=== PATIENT | female | born 1945 | race Caucasian/White ===

== ENCOUNTER 2018-06-08 09:02 | Emergency (ER) | payer OTHER ==
[2018-06-08] MEDS ORDERED: ONDANSETRON 4 MG/2 ML VIAL ONE (10:17)
[2018-06-08] MEDS ORDERED: NA CHLORIDE 0.9% 1,000 ML ONE (10:17)
[2018-06-08] MEDS ORDERED: FAMOTIDINE 20 MG/2 ML VIAL IV ONE (10:17)
[2018-06-08 10:41] LABS: Absolute Lymphocytes (CBC) 0.2 K/uL (0.7-4.9); Absolute Monocytes 0.2 K/uL (0.1-1.3); Absolute Neutrophil 8.2 K/uL (1.8-8.0); Basophils % 0.1 % (0-1.3); Eosinophils % 0.2 % (0-4.4); Hematocrit 40.2 % (36.0-45.0); Lymphocytes % 2.8 % (15.3-44.8); MCH 31.8 pg (27.0-35.0); MCV 94.3 fL (80-100); MPV 9.2 fL (7.6-11.3); Monocytes % 2.2 % (3.3-12.3); RBC Red Blood Cell Count 4.27 M/uL (3.86-4.86)
[2018-06-08 10:51] LABS: Albumin 3.9 g/dL (3.4-5.0); Bilirubin Direct 0.1 mg/dL (0-0.2); Bilirubin Total 0.6 mg/dL (0.2-1.0); Potassium 3.7 mmol/L (3.5-5.1); Protein, Total 7.4 g/dL (6.4-8.2)
[2018-06-08 11:08] LABS: Blood Morphology Comment NOT SEEN (NOT SEEN); Platelet Estimate ADEQ; Urine White Blood Cell Casts OK
[2018-06-08 11:35] LABS: Urine Bacteria <20 /HPF (<20); Urine Culture Reflex Order NOT NEEDED; Urine Mucus 1+ /HPF (NONE SEEN); Urine RBC NONE SEEN /HPF (NONE SEEN)
[2018-06-08 11:51] LABS: Urine Blood NEGATIVE (NEG); Urine Glucose NEGATIVE (NEG); Urine Protein NEGATIVE (NEG); Urine Specific Gravity 1.025 (1.005-1.030); Urine pH 5.5 (5.0-7.0)
--- NOTE | 2018-06-08 12:47 | ER ---
Nurse's Notes [facility] Name: Kassandra Russell Age: 72 yrs Sex: Female : 1945 Arrival Date: 06/08/2018 Time: 09:05 Bed 19 Private MD: Floyd Payne Diagnosis: Generalized abdominal pain;Vomiting;Diarrhea, unspecified Presentation: 06/08 09:26 Presenting complaint: Patient states: N/V/D and RUQ pain radiating to back. Pt states aa5 "I was going to see Dr. Estrada for a gallbladder check up on Sunday but I was just so sick I couldn't make it". Pt states "I am also having black coffee ground stool that started last night". Transition of care: patient was not received from another setting of care. Onset of symptoms was May 2018. Risk Assessment: Do you want to hurt yourself or someone else? Patient reports no desire to harm self or others. Initial Sepsis Screen: Does the patient meet any 2 criteria? No. Patient's initial sepsis screen is negative. Does the patient have a suspected source of infection? No. Patient's initial sepsis screen is negative. Care prior to arrival: None. 09:26 Method Of Arrival: Wheelchair aa5 09:26 Acuity: KRISTIE 3 aa5 Triage Assessment: 09:41 General: Appears in no apparent distress. uncomfortable, obese, Behavior is bp cooperative, appropriate for age, anxious. Pain: Complains of pain in abdomen. GI: Reports diarrhea, nausea, vomiting. Historical: - Allergies: 09:29 aspirin; aa5 09:29 Tape; aa5 09:29 tramadol; aa5 09:30 Tizanidine; aa5 - Home Meds: 09:30 None [Active]; aa5 - PMHx: 09:30 None; aa5 - PSHx: 09:30 Toe sx; Hysterectomy; Throat- Nodules removed; aa5 - Immunization history:: Pneumococcal vaccine is not up to date, Flu vaccine is not up to date. - Social history:: Smoking status: Patient/guardian denies using tobacco. - Ebola Screening: : No symptoms or risks identified at this time. Screenin:44 Abuse screen: Denies threats or abuse. Denies injuries from another. Nutritional bp screening: No deficits noted. Tuberculosis screening: No symptoms or risk factors identified. Fall Risk None identified. Assessment: 09:15 General: Appears in no apparent distress. uncomfortable, obese, Behavior is bp cooperative, appropriate for age, anxious. Pain: Complains of pain in abdomen. Neuro: Level of Consciousness is awake, alert, obeys commands, Oriented to person, place, time, situation, Appropriate for age. Cardiovascular: No deficits noted. Respiratory: Airway is patent Respiratory effort is even, unlabored, Respiratory pattern is regular, symmetrical. GI: Abdomen is obese, Reports diarrhea, nausea, vomiting. : No signs and/or symptoms were reported regarding the genitourinary system. EENT: No deficits noted. Derm: No deficits noted. Musculoskeletal: Circulation, motion, and sensation intact. Range of motion: intact in all extremities. 10:52 Reassessment: PT RESTING QUIETLY, ACUTE S/S RESOLVED AT THIS TIME. bp 13:02 Reassessment: PT D/C HOME VIA W/C WITH FAMILY, DX WITH NONSPECIFIC ABD PAIN. bp Vital Signs: 09:31 BP 133 / 70; Pulse 106; Resp 18 S; Temp 98.7(O); Pulse Ox 97% on R/A; Weight 66.68 kg aa5 (R); Height 5 ft. 2 in. (157.48 cm) (R); Pain 7/10; 10:51 BP 141 / 71; Pulse 94; Resp 16; Pulse Ox 96% ; bp 13:03 BP 142 / 69; Pulse 92; Resp 16; Pulse Ox 96% ; bp 09:31 Body Mass Index 26.89 (66.68 kg, 157.48 cm) aa5 ED Course: 09:05 Patient arrived in ED. rg4 09:06 Floyd Payne MD is Private Physician. rg4 09:27 Triage completed. aa5 09:27 Arm band placed on. aa5 09:40 Moises Lauren MD is Attending Physician. gs 09:41 Eagle Nunes, DEMIAN is Primary Nurse. bp 09:44 Patient has correct armband on for positive identification. Bed in low position. Call bp light in reach. Side rails up X2. Adult w/ patient. 10:20 Inserted saline lock: 20 gauge in right antecubital area, using aseptic technique. bp Blood collected. 13:02 No provider procedures requiring assistance completed. IV discontinued, intact, bp bleeding controlled, No redness/swelling at site. Pressure dressing applied. Administered Medications: 10:20 Drug: NS 0.9% 1000 ml Route: IV; Rate: 1 bolus; Site: right antecubital; bp 13:05 Follow up: IV Status: Completed infusion; IV Intake: 1000ml bp 10:20 Drug: Zofran 4 mg Route: IVP; Site: right antecubital; bp 13:05 Follow up: Response: No adverse reaction bp 10:20 Drug: Pepcid 20 mg Route: IVP; Site: right antecubital; bp 13:04 Follow up: Response: No adverse reaction bp Intake: 13:05 IV: 1000ml; Total: 1000ml. bp Outcome: 12:46 Discharge ordered by MD. 13:04 Discharged to home via wheelchair, with family. bp 13:04 Condition: stable 13:04 Discharge instructions given to patient, Instructed on discharge instructions, follow up and referral plans. medication usage, Demonstrated understanding of instructions, follow-up care, medications, Prescriptions given X 1. 13:05 Patient left the ED. bp Signatures: Maria Isabel Neal RN RN aa5 Jessica Capps rg4 Moises Lauren MD MD gs Peltier, Brian, RN RN bp Corrections: (The following items were deleted from the chart) 09:28 09:26 Presenting complaint: Patient states: N/V/D and RUQ pain radiating to back. Pt aa5 states "I was going to see Dr. Estrada for a gallbladder check up on Sunday but I was just so sick I couldn't make it" aa5
--- NOTE | 2018-06-08 12:47 | EDPHYS ---
Physician Documentation [facility] Name: Kassandra Russell Age: 72 yrs Sex: Female : 1945 Arrival Date: 06/08/2018 Time: 09:05 Bed 19 Private MD: Floyd Payne ED Physician Moises Lauren HPI: 06/08 12:42 This 72 yrs old Female presents to ER via Wheelchair with complaints of gs Vomiting/Diarrhea. 12:42 The patient presents to the emergency department with vomiting, diarrhea. Onset: The gs symptoms/episode began/occurred 2 day(s) ago. Possible causes: flare up of bowel problem, chronic abdominal pain for several years. The symptoms are aggravated by nothing. The symptoms are alleviated by nothing. Associated signs and symptoms: Pertinent negatives: fever. Severity of symptoms: At their worst the symptoms were moderate in the emergency department the symptoms have improved mildly. The patient has experienced similar episodes in the past, multiple times. The patient has been recently seen by a physician: dr armendariz scheduled for sunday. Historical: - Allergies: 09:29 aspirin; aa5 09:29 Tape; aa5 09:29 tramadol; aa5 09:30 Tizanidine; aa5 - Home Meds: 09:30 None [Active]; aa5 - PMHx: 09:30 None; aa5 - PSHx: 09:30 Toe sx; Hysterectomy; Throat- Nodules removed; aa5 - Immunization history:: Pneumococcal vaccine is not up to date, Flu vaccine is not up to date. - Social history:: Smoking status: Patient/guardian denies using tobacco. - Ebola Screening: : No symptoms or risks identified at this time. ROS: 12:42 All other systems are negative. gs Exam: 12:42 Head/Face: Normocephalic, atraumatic. Eyes: Pupils equal round and reactive to light, gs extra-ocular motions intact. Lids and lashes normal. Conjunctiva and sclera are non-icteric and not injected. Cornea within normal limits. Periorbital areas with no swelling, redness, or edema. ENT: Nares patent. No nasal discharge, no septal abnormalities noted. Tympanic membranes are normal and external auditory canals are clear. Oropharynx with no redness, swelling, or masses, exudates, or evidence of obstruction, uvula midline. Mucous membranes moist. Neck: Trachea midline, no thyromegaly or masses palpated, and no cervical lymphadenopathy. Supple, full range of motion without nuchal rigidity, or vertebral point tenderness. No Meningismus. Chest/axilla: Normal chest wall appearance and motion. Nontender with no deformity. No lesions are appreciated. Cardiovascular: Regular rate and rhythm with a normal S1 and S2. No gallops, murmurs, or rubs. Normal PMI, no JVD. No pulse deficits. Respiratory: Lungs have equal breath sounds bilaterally, clear to auscultation and percussion. No rales, rhonchi or wheezes noted. No increased work of breathing, no retractions or nasal flaring. Back: No spinal tenderness. No costovertebral tenderness. Full range of motion. Skin: Warm, dry with normal turgor. Normal color with no rashes, no lesions, and no evidence of cellulitis. MS/ Extremity: Pulses equal, no cyanosis. Neurovascular intact. Full, normal range of motion. Neuro: Awake and alert, GCS 15, oriented to person, place, time, and situation. Cranial nerves II-XII grossly intact. Motor strength 5/5 in all extremities. Sensory grossly intact. Cerebellar exam normal. Normal gait. 12:42 Constitutional: The patient appears alert, awake. 12:42 Abdomen/GI: Inspection: distension, that is mild, Palpation: mild abdominal tenderness, in all quadrants, rebound tenderness, is not appreciated. Vital Signs: 09:31 BP 133 / 70; Pulse 106; Resp 18 S; Temp 98.7(O); Pulse Ox 97% on R/A; Weight 66.68 kg aa5 (R); Height 5 ft. 2 in. (157.48 cm) (R); Pain 7/10; 10:51 BP 141 / 71; Pulse 94; Resp 16; Pulse Ox 96% ; bp 13:03 BP 142 / 69; Pulse 92; Resp 16; Pulse Ox 96% ; bp 09:31 Body Mass Index 26.89 (66.68 kg, 157.48 cm) aa5 MDM: 09:52 Patient medically screened. gs 12:42 Differential diagnosis: Nonspecific abd pain, pancreatitis, viral gastroenteritis, gs gastroenteritis. Data reviewed: vital signs, nurses notes. Counseling: I had a detailed discussion with the patient and/or guardian regarding: the historical points, exam findings, and any diagnostic results supporting the discharge/admit diagnosis, lab results, the need for outpatient follow up. Response to treatment: the patient's symptoms have markedly improved after treatment, the patient's symptoms have resolved after treatment, the patient's pain is gone. 06/08 09:57 Order name: Basic Metabolic Panel; Complete Time: 12:37 gs 06/08 09:57 Order name: CBC with Diff; Complete Time: 12:37 gs 06/08 09:57 Order name: Hepatic Function; Complete Time: 12:37 gs 06/08 09:57 Order name: Lipase; Complete Time: 12:37 gs 06/08 09:57 Order name: Urine Microscopic Only; Complete Time: 12:37 gs 06/08 10:51 Order name: CBC Smear Scan; Complete Time: 12:37 EDMS 06/08 09:57 Order name: IV Saline Lock; Complete Time: 10:26 gs 06/08 09:57 Order name: Labs collected and sent; Complete Time: 10:27 gs 06/08 09:57 Order name: Urine Dipstick-Ancillary (obtain specimen); Complete Time: : gs 06/08 10:52 Order name: Urine Dipstick--Ancillary (enter results); Complete Time: 12:37 eb Administered Medications: 10:20 Drug: NS 0.9% 1000 ml Route: IV; Rate: 1 bolus; Site: right antecubital; bp 13:05 Follow up: IV Status: Completed infusion; IV Intake: 1000ml bp 10:20 Drug: Zofran 4 mg Route: IVP; Site: right antecubital; bp 13:05 Follow up: Response: No adverse reaction bp 10:20 Drug: Pepcid 20 mg Route: IVP; Site: right antecubital; bp 13:04 Follow up: Response: No adverse reaction bp Disposition: 06/08/18 12:46 Discharged to Home. Impression: Generalized abdominal pain, Vomiting, Diarrhea, unspecified. - Condition is Stable. - Discharge Instructions: Diarrhea, Adult, Nausea and Vomiting, Adult. - Prescriptions for Zofran 4 mg Oral Tablet - take 1 tablet by ORAL route every 12 hours As needed; 10 tablet. - Medication Reconciliation Form, Thank You Letter, Antibiotic Education, Prescription Opioid Use form. - Follow up: Private Physician; When: 1 - 2 days; Reason: Re-evaluation by your physician. Signatures: Dispatcher [employer] Maria Isabel Salcedo RN RN aa5 Moises Lauren MD MD gs Eagle Nunes RN RN bp Corrections: (The following items were deleted from the chart) 13:05 12:46 06/08/2018 12:46 Discharged to Home. Impression: Generalized abdominal pain; bp Vomiting; Diarrhea, unspecified. Condition is Stable. Forms are Medication Reconciliation Form, Thank You Letter, Antibiotic Education, Prescription Opioid Use. Follow up: Private Physician; When: 1 - 2 days; Reason: Re-evaluation by your physician. gs
== END 2018-06-08 13:05 | disposition home or self-care (01) ==
LOC: ER 09:02
DX: R19.7 Diarrhea, unspecified (principal); R10.84 Generalized abdominal pain; Z88.5 Allergy status to narcotic agent; Z88.6 Allergy status to analgesic agent; Z88.8 Allergy status to other drugs, medicaments and biological substances; Z91.048 Other nonmedicinal substance allergy status
CPT/HCPCS: 36415; 80048; 80076; 83690; 85025; 96361; 96374; 96375; 99284; J2405; J7030; 81003; 81015

== ENCOUNTER 2018-06-19 06:31 | Day surgery (SDC) | payer OTHER ==
[2018-06-18 12:44] LABS: Absolute Lymphocytes (CBC) 1.1 K/uL (0.7-4.9); Absolute Monocytes 0.5 K/uL (0.1-1.3); Absolute Neutrophil 3.4 K/uL (1.8-8.0); Basophils % 1.1 % (0-1.3); Eosinophils % 3.2 % (0-4.4); Hematocrit 38.8 % (36.0-45.0); MCH 31.2 pg (27.0-35.0); MCV 92.7 fL (80-100); MPV 8.8 fL (7.6-11.3); Monocytes % 10.4 % (3.3-12.3); RBC Red Blood Cell Count 4.18 M/uL (3.86-4.86)
[2018-06-18 12:52] LABS: Albumin 3.9 g/dL (3.4-5.0); Bilirubin Direct 0.1 mg/dL (0-0.2); Bilirubin Total 0.4 mg/dL (0.2-1.0); Protein, Total 7.3 g/dL (6.4-8.2)
--- NOTE | 2018-06-18 13:41 | RAD REPORT ---
EXAM DESCRIPTION: RAD - Chest Pa And Lat (2 Views) - 06/18/2018 1:30 pm CLINICAL HISTORY: surgery Chest pain. COMPARISON: CHEST SINGLE VIEW dated 03/23/2014 TECHNIQUE: PA and lateral views of the chest were obtained. FINDINGS: The lungs are hyperexpanded compatible with COPD. The heart is upper limit of normal in si ze. No fracture or aggressive bony process. IMPRESSION: COPD without acute process identified.
--- NOTE | 2018-06-18 18:05 | EKG ---
Test Date: 2018-06-18 Test Time: 12:44:16 Corporate Quality Assurance Manager: BARBARA MEASUREMENT RESULTS: Intervals: Rate: 74 MO: 160 QRSD: 68 QT: 396 QTc: 439 [place]: P: 55 MO: 160 QRS: 57 T: 66 INTERPRETIVE STATEMENTS: Normal sinus rhythm Possible Left atrial enlargement Borderline ECG Compared to ECG 12/13/2017 11:17:42 No significant changes Electronically Signed On 06-18-18 18:03:07 LIFE SKILLS CONSULTANT by Gerardo Panda
[2018-06-19] MEDS ORDERED: Ringers Lactate 1,000 ML IV ONE (07:15)
[2018-06-19] MEDS ORDERED: CEFOXITIN/SWI 1gm 1 GM/10 ML SYR ONE (07:16)
[2018-06-19] MEDS ORDERED: PROPOFOL 200 MG/20 ML VIAL IV ONE (08:41)
[2018-06-19] MEDS ORDERED: FENTANYL CITR 100 MCG/2 ML ONE (08:42)
[2018-06-19] MEDS ORDERED: MIDAZOLAM HCL 2 MG/2 ML INJ ONE (08:42)
[2018-06-19] MEDS ORDERED: ONDANSETRON 4 MG/2 ML VIAL ONE (08:43)
[2018-06-19] MEDS ORDERED: LIDOCAINE 2% MPF 5 ML VIAL ONE (08:43)
[2018-06-19] MEDS ORDERED: ROCURONIUM 50 MG/5 ML VIAL IV ONE (08:43)
[2018-06-19] MEDS ORDERED: DEXAMETHASONE 10 MG/ML VIAL ONE (09:23)
[2018-06-19] MEDS ORDERED: EPHEDRINE SULF 50 MG/10 ML SYR ONE (09:42)
[2018-06-19] MEDS ORDERED: GLYCOPYRROLATE 0.2 MG/ML SYR ONE (10:15)
[2018-06-19] MEDS ORDERED: NEOSTIGMINE 1 MG/ML -5 ML SYRINGE ONE (10:16)
--- NOTE | 2018-06-19 10:25 | P.BOP ---
Preoperative diagnosis: RUQ abd pain, biliary dyskinesia, incarcerated umbilical hernia, acute chol Postoperative diagnosis: same Primary procedure: 1. Laparoscopic cholecystectomy Secondary procedure: 2. Open repair of incarcerated umbilical hernia Fruit And Vegetable Inspector: LIZABETH COATES Estimated blood loss: <10cc Specimen: gb, hernia sac Findings: as above Anesthesia: General Complications: None Transferred to: Recovery Room Condition: Good
[2018-06-19] MEDS: MEPERIDINE HCL 50 MG/ML AMP ONE ×7 (10:28→11:10)
[2018-06-19] MEDS ORDERED: KETOROLAC 30 MG/ML INJ ONE (11:12)
--- NOTE | 2018-06-24 22:49 | OP ---
Date of Procedure: 06/19/2018 Surgeon: Glen Estrada MD Crew Team Member: Clover Sanches. Preoperative Diagnoses: Right upper quadrant abdominal pain, biliary dyskinesia, incarcerated umbili yolanda hernia, acute cholecystitis. Postoperative Diagnoses: Right upper quadrant abdominal pain, biliary dyskinesia, incarcerated umbil ical hernia, acute cholecystitis. Procedures: 1.Laparoscopic cholecystectomy. 2.Open repair of an incarcerated tender umbilical hernia. Estimated Blood Loss: Less than 10 cc. Specimen: Hernia sac and gallbladder. Finding: As above. Anesthesia: General plus local. Indications: This is the case of a female who comes to us with above diagnosis. Fully explained the benefits, alternatives, and risks of laparoscopic, possible open cholecystectomy and repair of incar cerated umbilical hernia tender, which include but not limited to infection, bleeding, damage to frank cent structures, anesthesia complication, recurrence, ID, and even . She also understands this may not relieve any symptoms. She might need more than one surgical intervention. She understood, s igned the consent. Description Of Procedure: The patient was brought to the operating room and placed in the supine pos ition. Anesthesia was done without complication. A time-out was called. Abdominal area was prepped and draped in a sterile fashion. Local anesthetic was applied followed by sharp incision of the ski n in the infraumbilical region. Incision was carried down to subcutaneous tissue. We noticed a nenita ia sac present with incarcerated omentum. After the hernia sac was opened, we inspected the omentum, removed some adhesions from the hernia sac. We were able to reduce the omentum because it was still viable. After fully inspected, the hernia sac was removed. The fascial edges were cleaned. Then, we put Vicryl #1 inside the fascia. Chap[place]a trocar was carefully introduced. Pneumoperitoneum was ob tained. At that moment, I placed 3 more trocars, 5 mm each one of them, in the right upper quadrant. This allowed me to visualize the area of the gallbladder. Grasper was placed in the fundus of the gallbladder, another grasper in the infundibulum. The gallbladder was retracted in the inferolateral fashion exposing the triangle of Calot and obtaining critical view of safety. The cystic duct and c ystic artery were clearly isolated, freed circumferentially, and a connection between those and the g allbladder was clearly identified. I proceeded to ligate those by using at least 3 clips proximal, 1 clip distal, ligation in middle. Same was done with the cystic artery. No bile leak. No bleeding. Gallbladder was removed from liver using Bovie cauterizer and removed from abdominal cavity using a n EndoCatch through the umbilical incision. The area was inspected once again. No bile leak. No bl eeding. Hepatic arteries and common bile duct were protected at all times. The gallbladder fossa wi th no bleeding. At that moment, I proceeded to remove the trocars under direct vision. Deflated pne umoperitoneum. Closed the fascia with #1 Vicryl, closed the umbilical hernia with #1 Vicryl. Irriga oralia subcutaneous tissue, closed that with 3-0 chromic, and skin approximated. Sponge count and instr ument counts were correct. The patient tolerated the procedure well. The patient was sent to [facility] in stable condition. Disposition: Home. Activity: As tolerated. No heavy lifting. Followup: Follow up in my office in 1 week. Call for an appointment, [phone]. Keep area dry for 4 8 hours, then may shower. Medications: See orders. LEONARDO/ROWAN Voice ID: [id number] Report ID: [id number]
== END 2018-06-19 13:15 | disposition home or self-care (01) ==
LOC: OR 06:31
PROVIDERS: ATTEND Surgery
PROC: 0FT44ZZ Resection of Gallbladder, Percutaneous Endoscopic Approach (ICD-10-PCS; principal; 2018-06-19 08:30)
PROC: 0WQF0ZZ Repair Abdominal Wall, Open Approach (ICD-10-PCS; 2018-06-19 08:30)
DX: K81.2 Acute cholecystitis with chronic cholecystitis (principal); K42.0 Umbilical hernia with obstruction, without gangrene; K82.8 Other specified diseases of gallbladder; I10 Essential (primary) hypertension; Z88.6 Allergy status to analgesic agent; Z91.09 Other allergy status, other than to drugs and biological substances; Z83.3 Family history of diabetes mellitus; Z82.49 Family history of ischemic heart disease and other diseases of the circulatory system
CPT/HCPCS: 36415; 47562; 49587; 71046; 80048; 80076; 82150; 83690; 85025; 88302; 88304; 93005; J1100; J2175 ×2; J2250; J2405; J2704; J2710; J3010